=== PATIENT | female | born 1950 | race Caucasian/White ===

== ENCOUNTER 2016-10-29 13:13 | Day surgery (SDC) | payer MEDICARE, OTHER ==
[2016-10-28 13:25] VITALS: BMI 21.8
[~2016-10-29] VITALS: Ht 160 cm; Wt 120.0 kg
[2016-10-29] VITALS (15 sets, daily range): BP systolic 125–151; BP diastolic 52–72; PULSE 73–100; RESP 16–30; Ht 160 cm; Wt 120.0 kg
[~2016-10-29 13:13] MED LIST: CEFAZOLIN 1 GM INJ ONE; HYDR-3498 PO; IBUP-1542 PO; TRAM50TA2 PO
[2016-10-29] MEDS ORDERED: CRAN450C PO (15:45)
[2016-10-29] MEDS ORDERED: CARV3.12 PO (15:45)
[2016-10-29] MEDS ORDERED: DOCU-144 PO (15:45)
[2016-10-29] MEDS ORDERED: ALEN70TA30 PO (15:45)
[2016-10-29] MEDS ORDERED: LORA1TAB PO (15:46)
[2016-10-29] MEDS ORDERED: ACET325T45 PO (15:51)
[2016-10-29] MEDS ORDERED: SIN25100 PO (15:51)
[2016-10-29] MEDS ORDERED: ZOLP5TAB PO (15:51)
--- NOTE | 2016-10-29 15:55 | HPN ---
Date/Time of Note Date/Time of Note DATE: 10/29/16 TIME: 15:54 Interval H&P Admission Note Pt. seen H&P reviewed: No system changes SINDY QUINN Oct 29, 2016 15:55
[2016-10-29] MEDS ORDERED: FENTAnyl 50 MCG/ML VIAL ONE (16:20)
[2016-10-29] MEDS ORDERED: PROPOFOL 20 ML ONE (16:20)
[2016-10-29] MEDS ORDERED: LIDOCAINE 2% (SDV) 5 ML INJ ONE (16:20)
[2016-10-29] MEDS ORDERED: ROPIVACAINE 0.5 % 30 ML VIAL ONE (16:22)
[2016-10-29] MEDS ORDERED: CEFAZOLIN 1 GM INJ ONE ×2 (16:51)
[2016-10-29] MEDS ORDERED: EPHEDrine SULFATE 50 MG/5 ML SYG ONE (16:58)
[2016-10-29] MEDS ORDERED: ONDANSETRON 4 MG INJ ONE (16:58)
[2016-10-29] MEDS ORDERED: DEXAMETHASONE 4 MG/ML 1 ML INJ ONE (16:58)
[2016-10-29] MEDS ORDERED: FAMOTIDINE 20 MG INJ ONE (16:58)
[2016-10-29] MEDS ORDERED: POLYMYXIN/BACITRACIN 1L IRRIG IRR ONE (17:12)
[2016-10-29] MEDS ORDERED: OXYCODONE/ACETAMINOPHEN (5/325) TAB PO PRN ×2 (19:30→22:00)
[2016-10-29] MEDS ORDERED: PROCHLORPERAZINE 10 MG INJ IV PRN (19:30)
[2016-10-29] MEDS ORDERED: MEPERIDINE 25 MG INJ IV PRN (19:30)
[2016-10-29] MEDS ORDERED: DIPHENHYDRAMINE 50 MG INJ IV PRN (19:30)
[2016-10-29] MEDS ORDERED: HYDROmorphONE (0.2 MG/ML) 10ML SYG IV PRN ×2 (19:30)
[2016-10-29] MEDS ORDERED: FENTAnyl 50 MCG/ML VIAL IV PRN (19:30)
[2016-10-29] MEDS ORDERED: ONDANSETRON 4 MG INJ IV PRN (19:30)
[2016-10-29] MEDS ORDERED: HYDROmorphONE 2 MG/ML SYG ONE (20:49)
--- NOTE | 2016-10-29 22:34 | OPR ---
DATE OF OPERATION: 10/29/2016 SURGEON: Sindy Corral MD ANESTHESIA: General with peripheral nerve block. PREOPERATIVE DIAGNOSES: 1. Left elbow transolecranon fracture-dislocation. 2. Left radial head fracture. POSTOPERATIVE DIAGNOSES: 1. Left elbow transolecranon fracture-dislocation. 2. Left radial neck fracture. 3. Left elbow lateral collateral ligament rupture. 4. Left elbow coronoid fracture at the base of the coronoid. PROCEDURES: 1. Open reduction, internal fixation of left elbow olecranon fracture. 2. Left elbow radial head replacement. 3. Left elbow coronoid fracture open reduction, internal fixation. 4. Primary repair of left elbow lateral collateral ligament. 5. Open treatment of left elbow fracture, dislocation OPERATIVE FINDINGS: 1. Transolecranon fracture-dislocation. 2. Radial head fracture not amenable to plate fixation, requiring radial head replacement. 3. Left elbow coronoid fracture at the base of the coronoid, causing instability. 4. Left elbow lateral collateral ligament complete rupture. INDICATION FOR PROCEDURE: This is a 66-year-old female who injured her left elbow from a fall. She was seen in clinic and diagnosed with a transolecranon fracture-dislocation. Options were discussed, and the patient elected to proceed with operative intervention, understanding the risks and benefits. DESCRIPTION OF PROCEDURE: The patient was seen in the preoperative area, and all further questions were answered. Again she gave informed consent, understanding the risks and benefits. She was taken to operative suite and placed in the supine position. She was placed under general anesthesia and a peripheral nerve block performed at my request by the anesthesia team for perioperative anesthesia as well as postoperative pain relief. Ancef 2 grams was administered and tourniquet placed in left upper extremity. Left upper extremity was prepped with ChloraPrep stick and draped in the usual sterile fashion. Esmarch bandage was used to exsanguinate the extremity and tourniquet inflated to 250 mmHg. Attention was first turned to the lateral elbow and the radial head fracture. Sharp dissection was carried down through skin and subcutaneous tissue. The lateral common extensor origin was identified and was incised between the ECRL and the EDC. The radial head and neck were identified, and there was a very thin proximal fragment which was not amenable to plate fixation. The proximal radius was prepared for radial head replacement, but the implant was not placed. Attention was then turned to the olecranon, and incision centered over the olecranon was utilized with sharp dissection, carried down through skin and subcutaneous tissue. The ECU-FCU interval was incised, and a distal portion of the triceps was also incised. The fracture was reduced, and an Acumed olecranon plate was placed. There was good fracture fixation, and attention was then turned back to the radius. The 24 mm radial head replacement was placed into the shaft and had good fixation. X-ray imaging showed concentric radial head alignment and acceptable olecranon fracture fixation. However, there was a very large fragment in the anterior aspect of the elbow appearing to be the coronoid. This was not appreciated in x-rays previous to the trip to the operating room, but with the elbow in extension, the elbow did subluxate, and this was a very large fragment at the base of the coronoid which then required surgical fixation. Attention was turned medially, and an [id number] approach to the coronoid was utilized with sharp dissection carried down through skin and subcutaneous tissue. The flexor-pronator mass was dissected medially, and the median nerve and brachial artery were identified. These were retracted, and I was able to get over the flexor-pronator mass down to the coronoid fragment. The fracture site had significant scar tissue formation due to the chronicity of the injury, but this was freed up and the coronoid was reduced, and then Acumed coronoid plate was placed. The ulnar nerve was visualized deep in the wound during the procedure, and this was protected throughout. The wound was copiously irrigated , and fascia was closed followed by deep dermal 3-0 Monocryl. Caden were placed to the skin. Attention was then turned back laterally, and the radial head had a propensity to subluxate laterally, and decision was made to repair the lateral ligament. It had torn in its mid substance, which is not typical for these injuries, but nonetheless, the lateral ligament was repaired primarily. Final x-ray imaging showed concentric alignment in both the AP and the lateral and no subluxation throughout range of motion. The wound was copiously irrigated and fascia closed followed by deep dermal 3-0 Monocryl. Caden were placed to the skin. The olecranon incision was then assessed, and the wound was copiously irrigated , and the ECU-FCU interval was closed with 0 Ethibond followed by 3-0 Monocryl for the deep dermal layer and caden for the skin. Xeroform was placed over the wound followed by sterile gauze, Webril and a long arm splint with the elbow at 70 degrees and forearm in neutral rotation. The tourniquet was deflated, and the patient was awakened by Anesthesia. She was taken to the postoperative suite in stable condition and tolerated the procedure well without complication. SPECIMENS: Left radial head. ESTIMATED BLOOD LOSS: 100 mL COUNTS: Sponge, instrument, needle counts correct. FLUOROSCOPIC IMAGES: 26 TOURNIQUET TIME: 120 minutes x2 with a 20-minute interval between tourniquet times. CONDITION ON DISCHARGE: Stable. Dictated By: SINDY PORTILLO/GIA Conf#: [id number] DID#: [id number] [id number]
--- NOTE | 2016-10-30 07:42 | RADRPT ---
PROCEDURE: X-ray fluoroscopy guidance CLINICAL INDICATION: Injury, pain TECHNIQUE: Fluoroscopic guidance was utilized for left elbow ORIF. COMPARISON: None available FINDINGS: Fluoroscopic guidance was provided. 36 seconds of fluoroscopy time was utilized for the procedure. 26 images were obtained during the procedure in progress. IMPRESSION: 1. X-ray fluoroscopic guidance, as above. RPTAT: QQ .Thong Chavez MD, MD Date Time Electronically viewed and signed by .Thong Chavez MD, on 10/30/2016 07:42 .R/
== END 2016-10-29 23:44 | disposition home or self-care (01) ==
LOC: SDS 13:13
PROVIDERS: ATTEND Orthopaedic Surgery Hand Surgery
DX: S52.022D Displaced fracture of olecranon process without intraarticular extension of left ulna, subsequent encounter for closed fracture with routine healing (principal); S52.132D Displaced fracture of neck of left radius, subsequent encounter for closed fracture with routine healing; S53.49 Other sprain of elbow; X58.XXXD Exposure to other specified factors, subsequent encounter; J44.9 Chronic obstructive pulmonary disease, unspecified
CPT/HCPCS: 24586; 73080; 88304; 88311; C1713; J0690; J1100; J1170; J2405; J2795; J3010